=== PATIENT | female | born 1950 | race Caucasian/White ===

== ENCOUNTER 2017-02-23 10:12 | Inpatient (IN) | payer MEDICARE ==
[2017-02-23 10:59] LABS: BASOPHILS 0 % (0-2); EOSINOPHILS 0 % (0-7); HEMOGLOBIN 14.2 g/dL (12-16); IMMATURE GRANULOCYTES 0.1 % (0-5); MCH 29.1 pg (26.0-34.0); MCHC 32.3 g/dL (31.0-37.0); MCV 90.2 fL (80.0-100.0); MEAN PLATELET VOLUME 9.6 fL (7.4-10.4); MONOCYTES 4.7 % (2-11); NEUTROPHILS 83.2 % (40-80); PLATELET COUNT 346 10x3/uL (130-400); RBC 4.88 10x6/uL (4.00-5.40); RDW 13.8 % (11.5-14.5); WBC 7.1 10x3/uL (4.8-10.8)
[2017-02-23 11:18] LABS: ALBUMIN 3.1 g/dL (3.4-5.0); ALKALINE PHOSPHATASE 105 U/L (46-116); ALT (SGPT) 12 U/L (10-68); BILIRUBIN - TOTAL 0.57 mg/dL (0.2-1.3); CALC OSMOLALITY 286 mosm/kg (275-300); CARBON DIOXIDE 27.2 mmol/L (21.0-32.0); CHLORIDE - SERUM 100 mmol/L (98-107); CREATININE - SERUM 0.4 mg/dL (0.6-1.3); GLUCOSE 138 mg/dL (74-106); PROTEIN - SERUM 7.1 g/dL (6.4-8.2); SODIUM 142 mmol/L (136-145); UREA NITROGEN 18 mg/dL (7-18); eGFR NON AFRICAN AMERICAN > 90 mL/min (90-120)
[2017-02-23 11:25] LABS: POTASSIUM - SERUM 2.7 mmol/L (3.5-5.1)
[2017-02-23 11:40] LABS: TROPONIN-I 0.021 ng/mL (0.000-0.060)
[2017-02-23 12:56] LABS: APPEARANCE SLT CLOUDY (CLEAR); BACTERIA FEW /hpf (NONE SEEN); BILIRUBIN NEGATIVE (NEGATIVE); COLOR DK YELLOW (YELLOW); EPITHELIAL CELLS 0-5 /hpf (0-5); GLUCOSE 50 mg/dL (NEGATIVE); HYALINE CAST 0-5 /lpf (NONE SEEN); KETONE MODERATE mg/dL (NEGATIVE); MUCUS >1+ /lpf (NONE SEEN); NITRITE NEGATIVE (NEGATIVE); PROTEIN 1+ mg/dL (NEGATIVE); SPECIFIC GRAVITY 1.025 (1.005-1.020); URIC ACID CRYSTALS OCC /hpf (NONE SEEN); WHITE CELLS - URINE RARE /hpf (0-5)
--- NOTE | 2017-02-23 15:30 | NUR ---
RECIEVED TO ROOM 2203 FROM ER VIA BED PT WITH [facility] NON VERBAL BUT CAN USE SIMPLE WRITING COMMUNICATION DAUGHTER AT BEDSIDE FOR ADMISSION. SALINE LOCK NOTED TO LEFT WRIST. TOTAL CARE . PT PROVIDED WITH AIR CALL LIGHT PT STRAWS PLACED WITH IN MOUTH REACH FOR NURSE CALL.
[2017-02-23 15:36] LABS: MAGNESIUM - SERUM 2.4 mg/dL (1.8-2.4); PRE-ALBUMIN 15.5 mg/dL (18.0-35.7)
[2017-02-23 15:45] VITALS: BP 119/86
[2017-02-23 16:48] VITALS: BMI 16.9
--- NOTE | 2017-02-23 18:55 | NUR ---
PT RADHA FED 6 BITES OF SUPPER THEN REFUSED TO EAT MORE DRANK APPORXIMATELY 3 OZ OF SODA.
--- NOTE | 2017-02-23 19:20 | NUR ---
RECIEVED SHIFT REPORT. PT IS LYING IN BED. PT APPEARS TO BE ALERT BUT IS NONVERBAL. PT APPEARS TO BE IN NO DISTRESS AT THIS TIME. PT REQUIRES ASSISTANCE TURNING IN BED FOR COMFORT AND SKIN CARE. WILL CONTINUE TO MONITOR. SIDE RAILS ARE UP X 2. BED IS IN LOWEST POSITION. BED ALARM IS ON FOR SAFETY. CALL LIGHT DEVICE IN REACH OF MOUTH.
[2017-02-23 20:00] VITALS: BP 99/71
--- NOTE | 2017-02-23 21:25 | NUR ---
SHIFT ASSESSMENT COMPLETED. SCHEDULED K-DUR NOT ADMINISTERED DUE TO TOO SOON SINCE PREVIOUS DOSE. PT POSITIONED FOR COMFORT. SIDE RAILS X 2. BED LOW. BED ALARM ON. CALL DEVICE IN REACH.
[2017-02-24] VITALS: BP 92/66
[2017-02-24 06:05] LABS: BASOPHILS 0 % (0-2); EOSINOPHILS 0.1 % (0-7); HEMATOCRIT 39.9 % (36.0-48.0); HEMOGLOBIN 12.9 g/dL (12-16); IMMATURE GRANULOCYTES 0.1 % (0-5); LYMPHOCYTES 17.8 % (15-50); MCHC 32.3 g/dL (31.0-37.0); MCV 89.7 fL (80.0-100.0); MEAN PLATELET VOLUME 9.7 fL (7.4-10.4); MONOCYTES 6.5 % (2-11); NEUTROPHILS 75.5 % (40-80); PLATELET COUNT 319 10x3/uL (130-400); RBC 4.45 10x6/uL (4.00-5.40); RDW 13.8 % (11.5-14.5); WBC 7.9 10x3/uL (4.8-10.8)
[2017-02-24 06:30] LABS: ALBUMIN 2.8 g/dL (3.4-5.0); ALKALINE PHOSPHATASE 93 U/L (46-116); ALT (SGPT) 11 U/L (10-68); BILIRUBIN - TOTAL 0.45 mg/dL (0.2-1.3); CALCIUM 9.7 mg/dL (8.5-10.1); CARBON DIOXIDE 29.5 mmol/L (21.0-32.0); CHLORIDE - SERUM 102 mmol/L (98-107); CREATININE - SERUM 0.4 mg/dL (0.6-1.3); MAGNESIUM - SERUM 2.2 mg/dL (1.8-2.4); PROTEIN - SERUM 6.5 g/dL (6.4-8.2); SODIUM 143 mmol/L (136-145); UREA NITROGEN 16 mg/dL (7-18); eGFR NON AFRICAN AMERICAN > 90 mL/min (90-120)
[2017-02-24 06:32] LABS: CALC OSMOLALITY 284 mosm/kg (275-300); GLUCOSE 87 mg/dL (74-106)
[2017-02-24 08:37] VITALS: BP 129/80
[2017-02-24 10:40] VITALS: BMI 16.9
[2017-02-24 12:11] VITALS: BP 127/92
--- NOTE | 2017-02-24 14:04 | NUR ---
DR. ALBERT AT BEDSIDE WITH TOOTIE BAXTER. DR. ALBERT STATED THAT SPOTS TO ABD "LOOKED LIKE SHINGLES". PLACED ON CONTACT ISOLATION AND NEW ORDERS REC'D FROM DR. ALBERT. PT REPOSITIONED TO L SIDE AND PARTIAL LINEN CHANGE DONE. BED LOW, CALL LIGHT IN REACH, DENIES NEEDS. CPOC.
--- NOTE | 2017-02-24 14:34 | NUR ---
NUTRITION F/U CONSULT RECEIVED. PT NOW IN ISOLATION. REVIEWED SPEECH THERAPY EVAL. SPOKE WITH NURSING, WILL START [address] THIS PM. ADDED ENSURE TO CURRENT DIET. RD FOLLOWING
--- NOTE | 2017-02-24 14:36 | NUR ---
2ND PIV SITED TO R FOREARM. X2 ATTEMPTS. 20 GUAGE. SODIUM PHOSPHATE ADMINISTERED TO THIS SITE
--- NOTE | 2017-02-24 14:46 | NUR ---
Patient Name: TK BABB Admission Status: ER Accout number: [id number] Admission Date: 02-23-2017 : 1950 Admission Diagnosis:HYPOKALEMIA Attending: JOANN ALBERT Current LOS: 1 Anticipated DC Date: 02-27-2017 Planned Disposition: Home with Home Health Primary Insurance: [facility] Discharge Planning Comments: CM MET CALLED DAUGHTER (MUKESH) REGARDING D/C NEEDS AND PLANS. DAUGHTER STATED THEY CARRY HER UP THE STAIRS IN A WHEELCHAIR INTO THE HOUSE. PATIENT IS TOTALLY DEPENDENT WITH HER CARE. PATIENT IS BEDBOUND PER HER DAUGHTER BUT GOES TO THE DOCTOR IN A WHEELCHAIR. WHEN AT HOME SHE STAYS IN BED PER DAUGHTER. PATIENTS PCP IS DR. BENJAMIN AND PHARMACY IS [facility] AT THE [facility]. PATIENT IS CURRENT WITH [facility]. CM WILL CONTINUE TO FOLLOW PATIENT WITH D/C NEEDS AND PLANS. PCP DR. SOURAV GUNN AT [facility]- [phone] MUKESH (DAUGHTER) [phone] Ethics Instructor: Magui Edmondson Is the patient Alert and Oriented? No 0 * How many steps to enter\exit or inside your home? 5 0 * PCP DR. BENJAMIN 0 * Pharmacy [facility] AT [facility] 0 * Preadmission Environment Home with Family 0 * ADLs Total Dependent 0 * Other Equipment BED BOUND 0 * List name and contact numbers for known caregivers / representatives who currently or will assist patient after discharge: MUKESH (DAUGHTER) [phone] * Community resources currently utilized Home Health 0 * Please name any agencies selected above. [facility] 0 * Additional services required to return to the preadmission environment? Yes 0 * Can the patient safely return to the preadmission environment? Yes 0 * Has this patient been hospitalized within the prior 30 days at any hospital? No 0 Grand Total: 0
--- NOTE | 2017-02-24 15:30 | NUR ---
ATTEMPTED TO ADMINISTER NEW MEDICATION, ACYCLOVIR, PER JUN. HAD PT DRINK BY USING A SYRINGE TO GET FLUID INTO HER MOUTH. PT COULD NOT HOLD THIS AND IT SPILLED OUT OF HER MOUTH. ATTEMPTED TO ADMINSTER PILL, BUT PT STARTED CHOKING. REMOVED PILL FROM PTS MOUTH AND PROVIDED ORAL CARE. WILL NOTIFY DOCTOR.
[2017-02-24 15:34] VITALS: BP 128/90
--- NOTE | 2017-02-24 18:12 | NUR ---
OT NOTE: PT COMPLETED BUE POSITIONING FOR DECREASED RISK OF SKIN BREAKDOWN. THANK YOU, STAN NAVARRO/Dread
--- NOTE | 2017-02-24 18:40 | NUR ---
PT BLADDER SCANNED AFTER NOT VOIDING ALL DAY. CURRENTLY HAS APPROXIMATELY 135CC'S OF URINE IN BLADDER. CURRENT VS: BP 126/88, HR, 90, TEMP 97.9 AXILLARY, AND RESP 18. BED LOW, CALL LIGHT IN REACH, DOOR KEPT OPEN, REPOSITIONED TO R SIDE
--- NOTE | 2017-02-24 18:53 | NUR ---
REMAINS IN ISOLATION FOR POSSIBLE SHINGLES. PT DENIES NEEDS AT THIS TIME. CALL LIGHT IN REACH, WILL CONTINUE WITH PLAN OF CARE.
--- NOTE | 2017-02-24 19:25 | NUR ---
RECIEVED SHIFT REPORT. PT IS LYING IN BED. PT APPEARS TO BE ALERT BUT IS NONVERBAL. PT SHOWS NO SIGNS OF DISTRESS OR PAIN AT THIS TIME. PT REQUIRES ASSISTANCE TURNING IN BED FOR COMFORT AND SKIN CARE. SCD'S ON. O2 @ 2 PER NASAL CANNULA. IV IS PATENT AND FLUIDS ARE RUNNING PER ORDER. ISOLATION PRECAUTIONS IN PLACE. PT ASSISTED TO DRINK WATER WITH SYRINGE. PT TOLERATED WELL. WILL CONTINUE TO MONITOR. SIDE RAILS ARE UP X 2. BED IS IN LOWEST POSITION. CALL DEVICE IS IN PLACE, HOWEVER PT IS UNABLE TO USE IT.
[2017-02-24 20:00] VITALS: BP 107/70
--- NOTE | 2017-02-24 21:58 | NUR ---
SHIFT ASSESSMENT COMPLETED. NIGHT MEDICINE ADMINISTERED CRUSHED AND PLACED IN WATER AND GIVEN WITH NO PROBLEMS. WILL MONITOR. SIDE RAILS X 2. BED LOW.
[2017-02-25] VITALS: BP 137/93
[2017-02-25 04:00] VITALS: BP 120/80
[2017-02-25 05:40] LABS: BASOPHILS 0 % (0-2); EOSINOPHILS 0 % (0-7); HEMATOCRIT 36.4 % (36.0-48.0); HEMOGLOBIN 11.7 g/dL (12-16); IMMATURE GRANULOCYTES 0.1 % (0-5); MCH 28.7 pg (26.0-34.0); MCHC 32.1 g/dL (31.0-37.0); MCV 89.4 fL (80.0-100.0); MEAN PLATELET VOLUME 9.7 fL (7.4-10.4); MONOCYTES 7.2 % (2-11); NEUTROPHILS 75.7 % (40-80); PLATELET COUNT 283 10x3/uL (130-400); RBC 4.07 10x6/uL (4.00-5.40); RDW 14.1 % (11.5-14.5)
[2017-02-25 05:46] LABS: ALBUMIN 2.6 g/dL (3.4-5.0); ALKALINE PHOSPHATASE 82 U/L (46-116); ALT (SGPT) 12 U/L (10-68); CALC OSMOLALITY 281 mosm/kg (275-300); CALCIUM 9.5 mg/dL (8.5-10.1); CARBON DIOXIDE 30.6 mmol/L (21.0-32.0); CHLORIDE - SERUM 103 mmol/L (98-107); CREATININE - SERUM 0.4 mg/dL (0.6-1.3); GLUCOSE 118 mg/dL (74-106); MAGNESIUM - SERUM 2.1 mg/dL (1.8-2.4); PROTEIN - SERUM 5.6 g/dL (6.4-8.2); SODIUM 141 mmol/L (136-145); UREA NITROGEN 12 mg/dL (7-18); eGFR NON AFRICAN AMERICAN > 90 mL/min (90-120)
[2017-02-25 05:53] LABS: POTASSIUM - SERUM 3.7 mmol/L (3.5-5.1)
[2017-02-25 09:37] VITALS: BP 149/84
--- NOTE | 2017-02-25 12:12 | NUR ---
OT NOTE: PT RESTING UPON ENTERING ROOM; PERFORMED PROM TO B UES TO MAINTAIN JOINT MOBILITY
[2017-02-25 13:06] VITALS: BP 159/93
--- NOTE | 2017-02-25 13:14 | NUR ---
CALORIE COUNT 24 HOUR KCALGM PROTEIN DINNER BREAKFAST 02/25/1700 LUNCH [id number]
[2017-02-25 15:58] VITALS: BP 148/82
--- NOTE | 2017-02-25 18:21 | NUR ---
OT NOTE: PT COMPLETED BUE GENTLE PROM TO DECREASE RISK OF SKIN BREAKDOWN. THANK YOU, STAN NAVARRO/Dread
[2017-02-25 20:00] VITALS: BP 120/72
[2017-02-26] VITALS: BP 128/81
[2017-02-26] MEDS ORDERED: PLAVIX75 MG PO (03:50)
[2017-02-26] MEDS ORDERED: LOPRESSOR25 MG PO (03:51)
[2017-02-26] MEDS ORDERED: K-TAB10 MEQ PO (03:52)
[2017-02-26] MEDS ORDERED: PRAVACHOL20 MG PO (03:53)
[2017-02-26 05:26] VITALS: BP 132/87
[2017-02-26 05:58] LABS: BASOPHILS 0 % (0-2); EOSINOPHILS 0.2 % (0-7); HEMATOCRIT 34.1 % (36.0-48.0); IMMATURE GRANULOCYTES 0.2 % (0-5); LYMPHOCYTES 14.4 % (15-50); MCH 28.8 pg (26.0-34.0); MCHC 32.3 g/dL (31.0-37.0); MCV 89.3 fL (80.0-100.0); MEAN PLATELET VOLUME 9.5 fL (7.4-10.4); MONOCYTES 7.7 % (2-11); NEUTROPHILS 77.5 % (40-80); PLATELET COUNT 235 10x3/uL (130-400); RBC 3.82 10x6/uL (4.00-5.40); RDW 13.9 % (11.5-14.5); WBC 6.4 10x3/uL (4.8-10.8)
[2017-02-26 06:09] LABS: ALBUMIN 2.4 g/dL (3.4-5.0); ALKALINE PHOSPHATASE 86 U/L (46-116); BILIRUBIN - TOTAL 0.38 mg/dL (0.2-1.3); CALC OSMOLALITY 278 mosm/kg (275-300); CALCIUM 8.8 mg/dL (8.5-10.1); CARBON DIOXIDE 31.2 mmol/L (21.0-32.0); CHLORIDE - SERUM 101 mmol/L (98-107); GLUCOSE 113 mg/dL (74-106); MAGNESIUM - SERUM 2.2 mg/dL (1.8-2.4); POTASSIUM - SERUM 3.4 mmol/L (3.5-5.1); PROTEIN - SERUM 5.5 g/dL (6.4-8.2); SODIUM 139 mmol/L (136-145); UREA NITROGEN 13 mg/dL (7-18)
[2017-02-26 06:11] LABS: CREATININE - SERUM 0.2 mg/dL (0.6-1.3); eGFR NON AFRICAN AMERICAN > 90 mL/min (90-120)
[2017-02-26 06:23] LABS: ALT (SGPT) 11 U/L (10-68)
--- NOTE | 2017-02-26 07:00 | NUR ---
REPORT RECIEVED ASSUMED CARE. PATIENT IN BED WITH IV INTACT. NO COMPLAINTS OR SIGNS OF DISTRESS. CALL LIGHT WITHIN REACH.
[2017-02-26 08:38] VITALS: BP 118/82
--- NOTE | 2017-02-26 09:20 | NUR ---
PATIENT ATE SMALL AMOUNT OF BREAKFAST. DRANK SOME WATER AT THIS TIME. IV [facility]CT. [facility]
--- NOTE | 2017-02-26 12:45 | NUR ---
PATIENT REFUSED LUNCH. DRANK MORE OJ AND K+ AND ALSO WATER. NO COMPLAINTS OR SIGNS OF DISTRESS. CALL JORDAN SESAY.
[2017-02-26 14:15] VITALS: BP 151/104
--- NOTE | 2017-02-26 15:00 | NUR ---
PATIENT LAYING ON SIDE WITH EYES CLOSED RESTING QUIETLY. NO COMPLAINTS OR SIGNS OF DISTRESS. CALL LIGHTW ITHIN REACH.
[2017-02-26 17:06] VITALS: BP 140/101
--- NOTE | 2017-02-26 18:45 | NUR ---
PATIENT SITTING UP IN BED. GAVE SOME MORE OJ AND K+ AND WATER. ONLY ATE SMALL AMOUNT OF DINNER. IV INTACT. NO SIGNS OF DISTRESS. CALL LIGHT WITHIN REACH.
--- NOTE | 2017-02-26 19:31 | NUR ---
OT NOTE: PT COMPLETED BUE PROM TO DECREASE RISK OF SKIN BREAKDOWN. THANK YOU, STAN NAVARRO/Dread
[2017-02-26 20:00] VITALS: BP 130/82
[2017-02-27] VITALS: BP 144/96
[2017-02-27 04:00] VITALS: BP 137/94
[2017-02-27 06:12] LABS: BASOPHILS 0 % (0-2); EOSINOPHILS 0.2 % (0-7); HEMATOCRIT 34.1 % (36.0-48.0); HEMOGLOBIN 11.2 g/dL (12-16); IMMATURE GRANULOCYTES 0.2 % (0-5); LYMPHOCYTES 15.4 % (15-50); MCH 28.8 pg (26.0-34.0); MCHC 32.8 g/dL (31.0-37.0); MCV 87.7 fL (80.0-100.0); MEAN PLATELET VOLUME 9.7 fL (7.4-10.4); MONOCYTES 8.2 % (2-11); PLATELET COUNT 199 10x3/uL (130-400); RBC 3.89 10x6/uL (4.00-5.40); RDW 13.7 % (11.5-14.5); WBC 5.4 10x3/uL (4.8-10.8)
[2017-02-27 06:32] LABS: ALBUMIN 2.1 g/dL (3.4-5.0); ALKALINE PHOSPHATASE 80 U/L (46-116); ALT (SGPT) 9 U/L (10-68); CALC OSMOLALITY 261 mosm/kg (275-300); CALCIUM 8.6 mg/dL (8.5-10.1); CARBON DIOXIDE 30.1 mmol/L (21.0-32.0); CHLORIDE - SERUM 97 mmol/L (98-107); CREATININE - SERUM 0.3 mg/dL (0.6-1.3); GLUCOSE 103 mg/dL (74-106); MAGNESIUM - SERUM 1.9 mg/dL (1.8-2.4); POTASSIUM - SERUM 3.4 mmol/L (3.5-5.1); PROTEIN - SERUM 5.3 g/dL (6.4-8.2); SODIUM 131 mmol/L (136-145); UREA NITROGEN 9 mg/dL (7-18); eGFR NON AFRICAN AMERICAN > 90 mL/min (90-120)
--- NOTE | 2017-02-27 07:30 | NUR ---
AWAKE AND ALERT. ORIENTED X3. NO C/O AT THIS TIME. LUNGS ARE CLEAR BILATERALLY,NO COUGH NOTED. SKIN IS INTACT WITHOUT REDNESS EXCEPT SMALL AREA OF SCABS NOTED TO LOWER LEFT ABDOMEN. IV TO LEFT WRIST IS PATNET WITHOUT REDNESS AT INSERTION SITE. DENIES NEEDS.
[2017-02-27 08:33] VITALS: BP 147/94
--- NOTE | 2017-02-27 09:00 | NUR ---
FED BREAKFAST PER STAFF. ATE ONLY A FEW BITES. TOOK AM MEDS IN PUDDING BUT ONLY ATE THE PUDDING WITH MEDS IN IT. NO EXTRA. INCONTINENT OF STOOL. SKIN CARE PER STAFF. REPOSITIONED IN BED FOR COMFORT.
--- NOTE | 2017-02-27 12:15 | NUR ---
LUNCH SERVED IN ROOM. ATE ONLY A FEW BITES WITH STAFF FEEDING. NO C/O AT THIS TIME. DENIES NEEDS.
[2017-02-27 12:26] VITALS: BP 124/80
--- NOTE | 2017-02-27 14:46 | NUR ---
INCONTINENT OF STOOL. ASKED FOR BED HAMILTON. HAD LARGE AMOUNT OF URINE AND SMALL AMOUNT OF SOFT SEMI FORMED STOOL. SKIN CARE PER STAFF. DENIES NEEDS.
--- NOTE | 2017-02-27 15:59 | NUR ---
CM TELEPHONED THE PATIENT'S DAUGHTER, MUKESH, TO ADVISE OF DISCHARGE TOMORROW. MUKESH HAD COME TO [facility] TO VISIT WITH HER MOTHER. THE FAMILY GENERALLY WILL PROVIDE TRANSPORTATION VIA CAR. PATIENT MAY NEED AMBULANCE TRANASPORTATION TO HOME AT DISCHARGE FOR THIS ADMISSION. THERE ARE 5 STEPS TO ENTER THE FRONT DOOR OF HER HOME. PATIENT IS TOO WEAK TO SIT UP RIGHT IN W/C. THE PATIENT IS ON SERVICE WITH [facility] UNTIL 03/13/2017. HER COVERAGE WILL RUN OUT THEN.CM WILL FAX UPDATE TO [facility] AND NOTIFY OF POTENTIAL DISCHARGE. THE PATIENT IS FOLLOWED BY THE ALS CLINIC IN [place] AT [facility]. THEY HAD SUGGESTED HOSPICE SERVICES. THE PATIENT AND FAMILY MET / [facility] BUT WOULD LIKE TO MEET WITH THE MIXER OPERATOR TO REVIEW INFORMATION. THEY DO BNOT WANT A HOSPICE REFERRAL AT THIS TIME. THE PATIENT HAS A HOSPITAL BED, WHEELCHAIR, PATIENT LIFT & COMMODE AT HOME. THE PATIENT IS ON OXYGEN & NEBULIZER TREATMENTS IN THE HOSPITAL. SHE DOES NOT HAVE O2 OR NEBULIZER AT HOME. DME SUPPLIER IS [facility]. WILL NEED RM AIR O2 SAT READING AND ORDERS FOR OXYGEN AND NEBULIZER.
--- NOTE | 2017-02-27 16:15 | NUR ---
DAUGHTER HERE TO VISIT. BOTH PATIENT AND DAUGHTER REFUSED AIR OVERLAY AT THIS TIME. WILL CONTINUE TO MONITOR.
[2017-02-27 17:06] VITALS: BP 134/88
--- NOTE | 2017-02-27 19:24 | NUR ---
REFUSED TO EAT ANY SUPPER. NO CHANGES NOTED. DENIES NEEDS.
[2017-02-27 21:56] VITALS: BP 126/81
[2017-02-28 00:26] VITALS: BP 117/82
--- NOTE | 2017-02-28 03:03 | NUR ---
ASSESSED AT THE BEGINNING OF THE SHIFT. PT IS UNABLE TO TALK BUT DOES WELL WITH THE SHAKING OF HER HEAD YES AND NO. SHE REMAINS IN ISOLATION FOR SHINGLES. TELEMETRY IS IN PLACE AND RUNS SINUS RHYTHM, SHE WILL SOMETIMES ASK FOR THE BEDPAN AND SOMETIMES BE INCONT. ALL MEDS ARE CRUSHED AND GIVEN WITH LIQUIDS. WE TURN HER PER PROTOCOL AND SHE HAS SOME REDNESS TO HER HIPS AND HEELS. HEELS ARE UP ON A PILLOW. THERE WAS SOME EXTRA POTASSIUM GIVEN WITH HER NIGHT MEDS AND WE ARE HOPING HER POTASSIUM WILL BE UP IN THE AM LABS. THE BED IS LOW, RAILS UP X'S 2 WITH A SPECIAL BLOWING CALL LIGHT SET UP FOR PATIENT.
[2017-02-28 05:07] LABS: BASOPHILS 0 % (0-2); EOSINOPHILS 0.3 % (0-7); HEMATOCRIT 35.7 % (36.0-48.0); LYMPHOCYTES 20.9 % (15-50); MCH 29.1 pg (26.0-34.0); MCHC 33.6 g/dL (31.0-37.0); MCV 86.4 fL (80.0-100.0); MEAN PLATELET VOLUME 9.8 fL (7.4-10.4); MONOCYTES 10.4 % (2-11); NEUTROPHILS 68.4 % (40-80); PLATELET COUNT 196 10x3/uL (130-400); RBC 4.13 10x6/uL (4.00-5.40); RDW 13.3 % (11.5-14.5)
[2017-02-28 05:12] LABS: WBC 3.6 10x3/uL (4.8-10.8)
[2017-02-28 05:29] LABS: ALBUMIN 2.1 g/dL (3.4-5.0); ALKALINE PHOSPHATASE 89 U/L (46-116); BILIRUBIN - TOTAL 0.38 mg/dL (0.2-1.3); CALC OSMOLALITY 261 mosm/kg (275-300); CALCIUM 8.5 mg/dL (8.5-10.1); CARBON DIOXIDE 28.7 mmol/L (21.0-32.0); CHLORIDE - SERUM 95 mmol/L (98-107); GLUCOSE 106 mg/dL (74-106); MAGNESIUM - SERUM 2.2 mg/dL (1.8-2.4); POTASSIUM - SERUM 3.4 mmol/L (3.5-5.1); PROTEIN - SERUM 5.5 g/dL (6.4-8.2); SODIUM 131 mmol/L (136-145); UREA NITROGEN 10 mg/dL (7-18)
[2017-02-28 05:47] VITALS: BP 145/94
[2017-02-28 05:47] LABS: ALT (SGPT) 12 U/L (10-68); CREATININE - SERUM 0.2 mg/dL (0.6-1.3); eGFR NON AFRICAN AMERICAN > 90 mL/min (90-120)
--- NOTE | 2017-02-28 07:30 | NUR ---
AWAKE AND ALERT. ORIENTED X3. NO C/O AT THIS TIME. LUNGS ARE CLEAR BIALTERALLY, NO COUGH NOTED. SKIN IS INTACT WITHOUT REDNESS EXCEPT DARK SCABBED AREA TO LEFT LOWER QUAD AND STAGE 2 TO LEFT EAR. THIS IS NOT NEW, CLEANED WITH WATER AND BUTT BALM APPLIED TO AREA. WILL MONITOR. IV TO RIGHT WRIST PATENT AND LEFT WRIST PATENT WITHOUT REDNESS AT INSERTION SITE. DENIES NEEDS.
[2017-02-28 08:10] VITALS: BP 151/93
--- NOTE | 2017-02-28 08:20 | NUR ---
REFUSED BREAKFAST THIS AM.
--- NOTE | 2017-02-28 10:00 | NUR ---
TOOK AM MEDS CRUSHED IN . POSITIONED ON BED HAMILTON. VOIDED 200CC CLEAR YELLOW URINE AND HAD SMALL LOOSE GRAINY STOOL. SKIN CARE PER STAFF. REPOSITIONED IN BED FOR COMFORT.
[2017-02-28 12:51] VITALS: BP 153/106
--- NOTE | 2017-02-28 14:30 | NUR ---
O2 SAT AFTER A FOR SURE 90 MINUTES ON ROOM AIR AT 98%. DISCUSSED POSSIBLE PEG PLACEMENT WITH PATIENT SINCE ITS VERY DIFFICULT FOR HER TO SWALLOW ANY SUBSTANCE. SHE AGIAN WAS ADAMANT NOT PEG.
[2017-02-28 16:55] VITALS: BP 162/105
--- NOTE | 2017-02-28 18:00 | NUR ---
REFUSED SUPPER TRAY. NO NEEDS NOTED. NO CHANGES NOTED.
--- NOTE | 2017-02-28 20:55 | NUR ---
REPOSITION PT, HOB 35 DEGREE, SIDERAIL UP X 2, BED LOW.
--- NOTE | 2017-02-28 23:15 | NUR ---
RN NOTE: PT RESTING IN LOW ARMENTA'S POSITION WITH EYES CLOSED AND EASY RESPIRATIONS. IV IN RIGHT FA PATENT WITH PROCALAMINE INFUSING AT 50...WITH IVPB ACYCLOVIR HANGING AT THIS TIME. CONTACT ISOLATION PROTOCOLS IN PLACE. TELEMETRY IN PLACE. WILL CONTINUE TO MONITOR FOR NEEDS.
--- NOTE | 2017-02-28 23:45 | NUR ---
REST IN BED COMFORTABLY, HOB 40 DEGREE, SIDERAIL X 2.
[2017-03-01 01:36] VITALS: BP 120/93
--- NOTE | 2017-03-01 02:14 | NUR ---
REST IN BED, HOB 25 DEGREE,REGULAR AND EVEN BREATHING.
[2017-03-01 05:04] VITALS: BP 123/88
[2017-03-01 06:19] LABS: BASOPHILS 0 % (0-2); EOSINOPHILS 0.2 % (0-7); HEMATOCRIT 36.7 % (36.0-48.0); HEMOGLOBIN 12.3 g/dL (12-16); IMMATURE GRANULOCYTES 0.2 % (0-5); LYMPHOCYTES 14.3 % (15-50); MCH 28.6 pg (26.0-34.0); MCHC 33.5 g/dL (31.0-37.0); MCV 85.3 fL (80.0-100.0); MEAN PLATELET VOLUME 9.5 fL (7.4-10.4); MONOCYTES 8.3 % (2-11); PLATELET COUNT 205 10x3/uL (130-400); RDW 13.2 % (11.5-14.5)
[2017-03-01 06:30] LABS: WBC 4.7 10x3/uL (4.8-10.8)
[2017-03-01 06:42] LABS: ALBUMIN 2.1 g/dL (3.4-5.0); ALKALINE PHOSPHATASE 94 U/L (46-116); ALT (SGPT) 12 U/L (10-68); CALC OSMOLALITY 251 mosm/kg (275-300); CALCIUM 8.3 mg/dL (8.5-10.1); CARBON DIOXIDE 27.5 mmol/L (21.0-32.0); CHLORIDE - SERUM 94 mmol/L (98-107); GLUCOSE 106 mg/dL (74-106); PROTEIN - SERUM 5.4 g/dL (6.4-8.2); SODIUM 126 mmol/L (136-145); UREA NITROGEN 9 mg/dL (7-18)
[2017-03-01 06:43] LABS: CREATININE - SERUM 0.3 mg/dL (0.6-1.3); eGFR NON AFRICAN AMERICAN > 90 mL/min (90-120)
[2017-03-01 08:21] VITALS: BP 151/102
--- NOTE | 2017-03-01 09:42 | NUR ---
PT IS LYING IN BED WITH ASSISTANCE FROM NURSE AND LAST GREASER WITH CLEAN UP. PT BOWEL SOUNDS ARE HYPOACTIVE. PT BACK SIDE IS RED, BOTTOM LIP OF MOUTH IS BLEEDING. PT HAS LEAK AROUND STOOL. SUPP ORDERED, PT DECLINED PO MEDS UNTIL STOMACH HAS SETTLED. CONTINUE WITH PT CARE
--- NOTE | 2017-03-01 12:10 | NUR ---
Wound care consult: Pt requires total care and is bed bound. Contractures noted. Foot drop noted. Unable to assist with any ADLs. There is an open wound on left ear measuring 2.5cm x 0.5cm. This wound looks like a scratch/skin tear. Right hip (trochanter) has red/nonblanchable area measuring 5cm x 2cm. It is being protected with mepilex foam/cushion dressing. (Stage 1 pressure injury) Heels and elbows are discolored but all continue to delonte. Pillow is being kept between her knees. She is being turned q2h. Heel protectors have been applied. Personal care with each incontinent episode. She is incontinent of bowel and bladder. I will recommend an overlay mattress for additional protection of skin. Wound care will continue to monitor.
[2017-03-01 13:28] VITALS: BP 124/80
[2017-03-01 16:13] VITALS: BP 148/98
--- NOTE | 2017-03-01 19:35 | NUR ---
RECIEVED SHIFT REPORT. PT IS LYING IN BED. PT IS NONVERBAL. PT REQUIRES ASSISTANCE TURNING IN BED FOR COMFORT AND SKIN CARE. IV IS PATENT AND FLUIDS ARE RUNNING PER ORDER. NO SIGNS OF DISTRESS OR PAIN AT THIS TIME. ISOLATION PRECAUTIONS ARE IN PLACE. WILL CONTINUE TO MONITOR. SIDE RAILS ARE UP X 2. BED IS IN LOWEST POSITION. CALL DEVICE IN REACH.
--- NOTE | 2017-03-01 22:02 | NUR ---
SHIFT ASSESSMENT COMPLETED. NIGHT MEDS GIVEN CRUSHED IN PUDDING AND WATER WITH MINIMAL PROBLEMS. WILL MONITOR. SIDE RAILS X 2. BED LOW. CALL DEVICE IN REACH.
[2017-03-02] VITALS: BP 131/83
[2017-03-02 01:48] VITALS: BP 147/96
[2017-03-02 04:00] VITALS: BP 143/98
[2017-03-02 06:03] LABS: BASOPHILS 0 % (0-2); EOSINOPHILS 0.2 % (0-7); HEMATOCRIT 36.3 % (36.0-48.0); HEMOGLOBIN 12.2 g/dL (12-16); IMMATURE GRANULOCYTES 0.2 % (0-5); LYMPHOCYTES 15.1 % (15-50); MCH 28.8 pg (26.0-34.0); MCHC 33.6 g/dL (31.0-37.0); MCV 85.8 fL (80.0-100.0); MEAN PLATELET VOLUME 9.7 fL (7.4-10.4); MONOCYTES 9.4 % (2-11); NEUTROPHILS 75.1 % (40-80); PLATELET COUNT 220 10x3/uL (130-400); RBC 4.23 10x6/uL (4.00-5.40); RDW 13.3 % (11.5-14.5); WBC 4.4 10x3/uL (4.8-10.8)
[2017-03-02 06:31] LABS: ALBUMIN 2.1 g/dL (3.4-5.0); ALKALINE PHOSPHATASE 96 U/L (46-116); ALT (SGPT) 12 U/L (10-68); BILIRUBIN - TOTAL 0.39 mg/dL (0.2-1.3); CALC OSMOLALITY 252 mosm/kg (275-300); CALCIUM 8.2 mg/dL (8.5-10.1); CARBON DIOXIDE 25.3 mmol/L (21.0-32.0); CHLORIDE - SERUM 94 mmol/L (98-107); CREATININE - SERUM 0.2 mg/dL (0.6-1.3); GLUCOSE 95 mg/dL (74-106); POTASSIUM - SERUM 4.3 mmol/L (3.5-5.1); PROTEIN - SERUM 5.2 g/dL (6.4-8.2); SODIUM 126 mmol/L (136-145); UREA NITROGEN 13 mg/dL (7-18); eGFR NON AFRICAN AMERICAN > 90 mL/min (90-120)
--- NOTE | 2017-03-02 07:03 | NUR ---
REPORT RECEIVED, ASSUMED CARE OF PT. PT NON VERBAL, EASILY AROUSED. CONTACT ISOLATION IN PLACE. L FOREARM IV INFUSING FLUIDS ORDERED, DRSG C/D/I. TELEMETRY IN PLACE. MOUTH PIECE CALL LIGHT WITHIN REACH, BED IN LOWEST POSITION, SIDE RAILS UP X 2.
--- NOTE | 2017-03-02 07:48 | NUR ---
CM spoke with Keyla her mom being discharged home today. Patient will need to go via ems because she is unable to sit in a wheelchair. Daughter stated that she will be here at 2:00pm to bring clothes. Patient is also current with [facility]. CM will continue to follow and assist with discharge planning needs.
[2017-03-02 09:40] VITALS: BP 136/88
[2017-03-02] MEDS ORDERED: OMNICEF300 MG PO (10:47)
[2017-03-02] MEDS ORDERED: THERMOTABS 1 GM1 GM PO (10:47)
[2017-03-02] MEDS ORDERED: K-DUR20 MEQ PO (10:47)
[2017-03-02] MEDS ORDERED: FLORAJEN3 CAPS460 MG PO (10:47)
--- NOTE | 2017-03-02 15:57 | NUR ---
DISCHARGE INSTRUCTIONS GIVEN TO PT DAUGHTER, VERBALIZED UNDERSTANDING AND SIGNED.
--- NOTE | 2017-03-02 16:00 | NUR ---
R FOREARM AND L HAND IV D/C'D, CATHETER TIPS INTACT, BLEED CONTROL AND DRSG APPLIED.
--- NOTE | 2017-03-02 17:23 | NUR ---
TELEMETRY D/C'D AND RETURNED TO [facility]
--- NOTE | 2017-03-02 17:30 | NUR ---
PT DISCHARGED FROM FLOOR VIA STRETCHER WITH EMT'S. FAMILY AT BEDSIDE. PT TRANSPORTED TO AMBULANCE, PERSONAL BELONGINGS WITH PT DAUGHTER.
== END 2017-03-02 17:31 | disposition home health service (06) | DRG 689 ==
LOC: EDBD 10:12 → D.ER 10:12 → D.MS 13:10
PROVIDERS: Emergency Medicine; ADMIT Family Medicine
DX: N39.0 Urinary tract infection, site not specified (principal); R53.2 Functional quadriplegia; E43 Unspecified severe protein-calorie malnutrition; G12.21 Amyotrophic lateral sclerosis; Z68.1 Body mass index [BMI] 19.9 or less, adult; E87.1 Hypo-osmolality and hyponatremia; E87.6 Hypokalemia; R53.1 Weakness; I10 Essential (primary) hypertension; E86.0 Dehydration; I25.2 Old myocardial infarction; Z86.73 Personal history of transient ischemic attack (TIA), and cerebral infarction without residual deficits